=== PATIENT | female | born 1970 | race American Indian/Alaskan Native ===

== ENCOUNTER 2018-06-22 08:04 | Outpatient (CLI) | payer OTHER | END 2018-06-22 08:05 | disposition home or self-care (01) | LOC: VAS 08:04 | PROVIDERS: ATTEND Internal Medicine | DX: M79.89 Other specified soft tissue disorders (principal) ==

== ENCOUNTER 2021-04-09 00:08 | Emergency (ER) | payer OTHER | END 2021-04-09 01:00 | disposition left against medical advice (07) | LOC: ED 00:08 | DX: R51.9 Headache, unspecified (principal); Z53.21 Procedure and treatment not carried out due to patient leaving prior to being seen by health care provider ==